=== PATIENT | male | born 2000 | race Caucasian/White ===

== ENCOUNTER 2023-01-12 16:32 | Emergency (ER) | payer OTHER, SELFPAY ==
--- NOTE | ~2023-01-12 | XR_ITS ---
EXAMINATION: XR finger 2nd RT min 2V DATE: 01/12/2023 16:59 INDICATION: Drill injury to the tip of the right second digit TECHNIQUE: Dorsal palmar, lateral and oblique views of the right second digit were obtained COMPARISON: None FINDINGS: Fracture at the tuft of the right second digit with up to 2 mm displacement of a very small bone frag ment. No other fractures identified. Normal joint spaces and alignment at the visualized metacarpopha langeal and interphalangeal joints. No radiopaque foreign bodies. IMPRESSION: 1. Mild displacement of a very small fragment of a fracture along the distal margin of the tuft of th e right second distal phalanx, presumably an open/compound fracture given the provided history of a d rill injury. Reviewed, dictated and finalized at location A. IMPRESSION: 1. Mild displacement of a very small fragment of a fracture along the distal ma rgin of the tuft of the right second distal phalanx, presumably an open/compoun d fracture given the provided history of a drill injury.
[2023-01-12 16:35] VITALS: BP 149/78; PULSE 82; RESP 18; TEMP 36.7; O2SAT 99
[2023-01-12] MEDS: TETANUS,DIPHTHERIA,AC PERTUSSIS ADULT (0.5 ML) BOOSTRIX IM (17:27)
[2023-01-12] MEDS: LIDO 1%/EPINEPHRINE 1:100,000 20 ML VIAL INFILTRATE (17:27)
--- NOTE | 2023-01-12 18:48 | ED.WOUNDLAC ---
HPI - Wound/Laceration General Chief Complaint: Wound/Laceration Stated Complaint: Finger Lac Time Seen by Provider: 01/12/23 16:41 History of Present Illness HPI narrative: Patient is a 22-year-old male who presents ER with right index finger injury. He was using a spade drill bit to drill a hole. He reached behind the piece of wood to see if it made all way through when he caught his finger suffering laceration. It goes from the palmar aspect around through the nail and nailbed. No numbness or tingling. Bleeding controlled. Denies numbness or tingling. Unsure of last tetanus shot. No additional injury. Sent here from urgent care. Related Data Home Medications Medication Instructions Recorded Confirmed naproxen sodium 220 mg capsule 220 mg PO BID PRN 12/28/19 12/31/19 (Aleve) Allergies Allergy/AdvReac Type Severity Reaction Status Date / Time No Known Allergies Allergy Mild Verified 01/12/23 16:41 Review of Systems Musculoskeletal: Musculoskeletal: Denies arthralgias, Denies joint swelling and Denies muscle cramps Comments: Right index finger Integumentary/Breasts: Skin/Breast: Denies erythema and Denies rash Comments: Laceration Neurologic: Denies numbness and Denies weakness PMFSH Past Medical History Medical History (Updated 01/12/23 @ 21:43 by Yousuf Moe MD) Healthy adult male Surgical History Surgical History (Updated 01/12/23 @ 21:43 by Yousuf Moe MD) No pertinent past surgical history Social History Social History Smoking status: Never smoker Alcohol intake: never Substance use: never Living arrangements: with family Occupation/Education: occupation Additional occupation/education comments: [employer] Gender identity (if verbalized by the patient): Male Exam Narrative: GENERAL: Well-appearing, well-nourished, and in no acute distress. HEAD: Normocephalic, atraumatic. EXTREMITIES: Right hand with deformity to the index finger distal phalanx but not involving the PIP/DIP. 2.5 cm laceration extending around the finger. No bone can be seen in a bloodless field. Sensation intact. Normal range of motion of the second digit. SKIN: Warm, dry, no rash. NEURO: No focal deficits. Alert and oriented x3. PSYCH: Normal mood and affect. Course Course Emergency Course: Patient tolerated repair well. Tetanus updated. Will treat with oral antibiotics as this is technically an open fracture though no bone can be seen. Recommend follow-up with hand surgery and he has been given to phone numbers that he may attempt to schedule follow-up with. Vital Signs Vital signs: Vital Signs Temperature 98.1 F 01/12/23 16:35 Pulse Rate 82 01/12/23 16:35 Respiratory Rate 18 01/12/23 16:35 Blood Pressure 149/78 H 01/12/23 16:35 Pulse Oximetry 99 01/12/23 16:35 Oxygen Delivery Room Air 01/12/23 16:35 Temperature 98.1 F 01/12/23 16:35 Pulse Rate 68 01/12/23 19:25 Respiratory Rate 18 01/12/23 16:35 Blood Pressure 122/79 01/12/23 19:25 Pulse Oximetry 99 01/12/23 19:25 Oxygen Delivery Room Air 01/12/23 16:35 Procedures Laceration Laceration 1: Date: 01/12/23 Time: 18:00 Side (If applicable): right Size (cm): 2.5 Description: linear Depth: simple, single layer Local Anesthetic: lidocaine 1% and with epi Amount of anesthesia used (mL): 1 Pre-repair: wound explored and irrigated extensively ====== Skin Level ====== Skin layer closed with: vicryl Size (cm): 5-0 Number of sutures: 3 Technique: simple, interrupted and other (Additional 1 suture on Chromic Gut 5-0.) ====== Subcutaneous Layer ====== ====== Muscle Layer ====== ====== Tendon Layer ====== Orthopedic Splinting/Casting Injury #1: Splinting/Casting Time: 19:00 Side: right
[2023-01-12] MEDS: CEPHALEXIN 500 MG CAPSULE PO (18:56)
[2023-01-12 19:25] VITALS: BP 122/79; PULSE 68; O2SAT 99
== END 2023-01-12 19:26 | disposition home or self-care (01) ==
PROVIDERS: Emergency Provider Emergency Medicine; PCP Family Medicine
DX: S62.630B Displaced fracture of distal phalanx of right index finger, initial encounter for open fracture (principal); Z23 Encounter for immunization; W29.8XXA Contact with other powered hand tools and household machinery, initial encounter
CPT/HCPCS: 12001; 29130; 73140; 90471; 90715; 99283; 99284; A9270